=== PATIENT | female | born 1950 | race Caucasian/White ===

== ENCOUNTER 2019-01-23 10:08 | Inpatient (IN) | payer MEDICARE, BC ==
[~2019-01-23 10:08] MED LIST: ACETAMINOPHEN 1,000 MG/100 ML BTL IVPB ONE; ACETAMINOPHEN 500 MG TABLET PO ONE; CELECOXIB 100 MG CAPSULE PO ONE; CLINDAMYCIN PHOS/D5W 900MG 900 MG/50 ML BAG IVPB ONE; FAMOTIDINE 20MG TABLET PO ONE; METOCLOPRAMIDE 10 MG TABLET PO ONE; RINGERS SOLUTION,LACTATED 1,000 ML IV ONE; SCOPOLAMINE 1 PATCH TDSY TD ONE; VANCOMYCIN 1GM/200ML PREMIX 1 GM/200 ML PIGGYBACK IVPB ONE
[2019-01-23] MEDS ORDERED: 0.9 % SODIUM CHLORIDE 1000ML 1,000 ML IV ONE ×2 (10:58→13:20)
[2019-01-23 11:07] LABS: ABO GROUP A; ANTIBODY SCREEN NEGATIVE (NEGATIVE); RH TYPE POSITIVE
[2019-01-23] MEDS ORDERED: AL HYDROX/MAG HYDROX 30ML UD PO PRN (11:42)
[2019-01-23] MEDS ORDERED: ZOLPIDEM TARTRATE 5 MG TABLET PO PRN (11:42)
[2019-01-23] MEDS ORDERED: METOCLOPRAMIDE HCL 10 MG/2 ML VIAL IVP PRN (11:42)
[2019-01-23] MEDS ORDERED: KETOROLAC 30 MG/ML VIAL IVP PRN ×2 (11:42)
[2019-01-23] MEDS ORDERED: HYDROMORPHONE HCL 2 MG/ML VIAL IM PRN ×2 (11:42)
[2019-01-23] MEDS ORDERED: TRAMADOL HCL 50 MG TABLET PO PRN ×2 (11:42)
[2019-01-23] MEDS ORDERED: ACETAMINOPHEN W/ CODEINE 300MG/60MG TABLET PO PRN ×2 (11:42)
[2019-01-23] MEDS ORDERED: MAGNESIUM HYDROXIDE 30 ML UDC PO PRN (11:42)
[2019-01-23] MEDS ORDERED: DIPHENHYDRAMINE HCL 25 MG CAPSULE PO PRN (11:42)
[2019-01-23] MEDS ORDERED: PROMETHAZINE HCL 12.5 MG in 0.9 % SODIUM CHLORIDE 100ML 50 ML IVPB PRN (11:42)
[2019-01-23] MEDS ORDERED: ONDANSETRON HCL IV 4 MG/2 ML VIAL IVP PRN (11:42)
[2019-01-23] MEDS ORDERED: BISACODYL 10 MG SUPP RC PRN (11:42)
[2019-01-23] MEDS ORDERED: NALOXONE 0.4 MG/1 ML VIAL IVP PRN (11:42)
[2019-01-23] MEDS ORDERED: ACETAMINOPHEN W/ CODEINE 300MG/30MG TABLET PO PRN ×2 (11:42)
[2019-01-23] MEDS ORDERED: ACETAMINOPHEN 325 MG TAB PO PRN (11:42)
[2019-01-23] MEDS ORDERED: HYDROCODONE/APAP 5/325MG TABLET PO PRN (11:42)
[2019-01-23] MEDS ORDERED: VANCOMYCIN HCL 3,000 MG in RINGERS SOLUTION,LACTATED 3,000 ML IVPB ONE (12:27)
[2019-01-23] MEDS ORDERED: BUPIVACAINE LIPOSOME 266MG/20ML VIAL SQ ONE (13:01)
[2019-01-23] MEDS ORDERED: BUPIVACAINE 0.5% W/EPI MPF 30 ML VIAL SQ ONE (13:01)
[2019-01-23] MEDS ORDERED: TRANEXAMIC ACID 1,000 MG/10 ML ML IV ONE (14:00)
[2019-01-23] MEDS ORDERED: DEXTROSE 5 % AND 0.9 % NACL 1,000 ML IV PRN (14:30)
[2019-01-23] MEDS: HYDROCODONE/APAP 7.5/325MG TABLET PO PRN ×2 (15:02→18:57)
[2019-01-23] MEDS: DOCUSATE SODIUM 100 MG CAPSULE PO SCH (21:52)
[2019-01-23] MEDS: FERROUS SULFATE 325 MG TAB PO SCH (21:52)
[2019-01-23] MEDS: VANCOMYCIN 1GM/200ML PREMIX 1 GM/200 ML PIGGYBACK IVPB SCH (22:04)
[2019-01-24] MEDS: HYDROCODONE/APAP 7.5/325MG TABLET PO PRN ×3 (03:39→15:27)
[2019-01-24 06:43] LABS: HEMATOCRIT 34.9 % (35.0-47.0); HEMOGLOBIN 11.5 gm/dl (11.6-16.0)
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
[2019-01-24] MEDS: PREGABALIN 25 MG CAPSULE PO SCH (10:42)
[2019-01-24] MEDS: FERROUS SULFATE 325 MG TAB PO SCH ×2 (10:43→21:17)
[2019-01-24] MEDS: ATORVASTATIN 20 MG TABLET PO SCH (10:43)
[2019-01-24] MEDS: PREGABALIN 50 MG CAPSULE PO SCH (10:43)
[2019-01-24] MEDS: DOCUSATE SODIUM 100 MG CAPSULE PO SCH ×2 (10:43→21:17)
[2019-01-24] MEDS: HYDROCHLOROTHIAZIDE 25 MG TABLET PO SCH (10:43)
[2019-01-24] MEDS: METOPROLOL SUCC 50 MG TABLET PO SCH (10:43)
[2019-01-24] MEDS: RIVAROXABAN 10 MG TABLET PO SCH (10:44)
[2019-01-24] MEDS: CELECOXIB 100 MG CAPSULE PO SCH (10:44)
[2019-01-24] MEDS: VANCOMYCIN 1GM/200ML PREMIX 1 GM/200 ML PIGGYBACK IVPB SCH (10:44)
[2019-01-24] MEDS: AMLODIPINE BESYLATE 5MG TAB PO SCH (10:44)
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
--- NOTE | 2019-01-24 12:50 | Operative Note ---
PREOPERATIVE DIAGNOSIS: Right hip end-stage arthrosis. POSTOPERATIVE DIAGNOSIS: Right hip end-stage arthrosis. OPERATION: Right total hip arthroplasty. SURGEON: Augustus Alonso MD ANESTHESIA: Spinal. ANESTHESIA PROVIDER: Sawyer Allen CRNA COMPLICATIONS: None. ESTIMATED BLOOD LOSS: 200 mL OPERATIVE FINDINGS: [id number] hip arthrosis. COMPONENTS PLACED: A 2 g vancomycin cement [employer] Synergy total hip arthroplasty system cemented, a size 12 high-offset femoral stem component, a 32 plus 4 mm cobalt chrome femoral head component, a 52 mm 3-hole Reflection acetabular screw component with 2 screw caps, centrally-threaded screw cap, and a 35-degree highly cross-linked polyethylene liner. INDICATION: This is a 68-year-old female with end-stage hip arthrosis. She is well known to me. She is status post left hip arthroplasty done a few years ago. Scheduled for right. I explained all risks and benefits in detail for the diagnosis and procedure including but not limited to infection, nerve injury, vessel injury, persistent pain, stiffness, numbness, tingling in her hip, periprosthetic fracture, need for resection arthroplasty should the components become infected or loosen, nerve injury, vessel injury, blood clot, need for further procedures, and need for anticoagulation to prevent blood clots and risks associated with these medications. All of her questions were answered. The rehab and healing course were outlined. She agreed to proceed. PROCEDURE: The patient brought to the OR and placed in the left lateral decubitus position. The right hip and lower extremity prepped and draped in sterile fashion. Prepped again with Chloraprep and draped. Intraoperative timeout was performed. Next, a standard posterior approach was marked over the hip. It was infiltrated with 0.5% Marcaine with epinephrine, Exparel, tranexamic acid mixture. Skin and subcutaneous tissue dissected down to gluteal fascia, split longitudinally. The subgluteal plane was bluntly dissected. Self-retainer was brought in and had good exposure. We then released the short external rotators, tagged them with #2 Vicryl. We then incised the capsule, inverted in T fashion, and dislocated the femoral head. Resected it 1.5 cm above the lesser trochanter. Inserted the box osteotome, inserted the reamer. Started reaming in 1 mm increments working up to a size 12. We stopped there, at previous size we used in the other hip, and then we broached a 10, calcar plane, then 11, then a 12, had a good fit. Next, attention turned to the acetabulum. Released the anterior capsule acetabulum and brought in self-retainers. Had a good exposure of the acetabulum. We resected some of the labrum and periphery and capsule. Next, we started reaming in 1 mm increments working 45 degrees inclination and 20 degrees anteversion until we reamed up to a size 51 mm and planned on using a 52 shell. We impacted the trial shell and it fit nicely. It was down flush medially and peripherally. That is the size we used. Next, inserted the real 3-hole acetabular shell after changing our gloves after irrigating copiously. Impacted down until medial with wall. We drilled a posterior central superior quadrant screw hole and inserted the 40 mm screw. We had a good purchase. Next, then placed a trial liner and did a trial reduction with the trial stem. Best combination range of motion, stability was with a high-offset 32 plus 4 mm femoral head component. This allowed for good abductor tension, symmetric leg lengths, and stability with flexion and internal rotation and stability with extension and external rotation with the size we used. Next, we irrigated copiously, removed all trial components, placed 2 screw caps, centrally-threaded screw cap, and impacted down the real acetabular liner with the hamm in the posterosuperior quadrant. Verified it was interlocked after mixing cement. Next, we placed cement restrictor in the femoral canal after irrigating and injected the cement using thrid generation cement technique, removed the suction catheter and impacted down the real femoral stem again in 15 degrees of anteversion until the collar was flush with the medial calcar. Next, once cement hardened, we then cleaned and dried the trunnion, impacted down the real femoral head component, reduced the hip, and found that the range of motion to be the same. Then we irrigated copiously, injected our 0.5% Marcaine with epinephrine, Exparel, tranexamic acid mixture deep now in the short external rotators, deep capsule, and deep abductors working out superficially, checking the sciatic nerve, gluteal and subcutaneous. Next, closed the gluteal fascia securely with running #2 quill suture, irrigated again and closed the skin with 2-0 Vicryl. Provisional dressing applied with Acticoat and sterile dressing, changed to CARLA dressing prior to discharge. CC: Americo VILLAVICENCIO
[2019-01-24] MEDS ORDERED: LIDOCAINE 2% MDV (20MG/ML) 20ML VIAL IV ONE (16:15)
[2019-01-24] MEDS ORDERED: MIDAZOLAM HCL 2MG/2ML VIAL IV ONE (16:15)
[2019-01-24] MEDS ORDERED: EPHEDRINE SULFATE 50 MG/ML ML IV ONE (16:15)
[2019-01-24] MEDS ORDERED: PROPOFOL 10 MG/ML VIAL IV ONE (16:15)
[2019-01-25] MEDS: HYDROCODONE/APAP 5/325MG TABLET PO PRN ×4 (00:57→21:25)
[2019-01-25 06:28] LABS: HEMATOCRIT 36.6 % (35.0-47.0); HEMOGLOBIN 12.2 gm/dl (11.6-16.0)
--- NOTE | 2019-01-25 08:57 | RADIOLOGY REPORT ---
EXAMINATION: Right hip 1 view. CLINICAL HISTORY: Postop total hip arthroplasty. TECHNIQUE: Single AP spine view of the right hip is obtained portably. COMPARISON: None. ENCOUNTER: Initial. FINDINGS: There is normal bone mineralization. There are changes of recent total right hip arthroplasty with the metallic prosthetic components appearing well seated. No complicating fracture or dislocation. Soft tissue swelling and soft tissue emphysema are noted at the surgical site. Surgical clips project at the level of the right inferior pubic ramus. IMPRESSION: Status post recent total right hip arthroplasty without complicating fracture or dislocation. MTDD
[2019-01-25] MEDS: DOCUSATE SODIUM 100 MG CAPSULE PO SCH ×2 (10:19→21:25)
[2019-01-25] MEDS: CELECOXIB 100 MG CAPSULE PO SCH (10:19)
[2019-01-25] MEDS: HYDROCHLOROTHIAZIDE 25 MG TABLET PO SCH (10:20)
[2019-01-25] MEDS: FERROUS SULFATE 325 MG TAB PO SCH ×2 (10:20→21:25)
[2019-01-25] MEDS: ATORVASTATIN 20 MG TABLET PO SCH (10:21)
[2019-01-25] MEDS: PREGABALIN 25 MG CAPSULE PO SCH (10:22)
[2019-01-25] MEDS: PREGABALIN 50 MG CAPSULE PO SCH (10:22)
[2019-01-25] MEDS: AMLODIPINE BESYLATE 5MG TAB PO SCH (10:22)
[2019-01-25] MEDS: METOPROLOL SUCC 50 MG TABLET PO SCH (10:23)
[2019-01-25] MEDS: RIVAROXABAN 10 MG TABLET PO SCH (10:26)
--- NOTE | 2019-01-25 14:05 | Physical Therapy Tx Note ---
Physical Therapy Tx Note - Treatment Note Tolerated: Good Total Time Spent With Patient: 30 Physical Therapy Tx Note: Detail (Patient was in bathroom with nurse upon [employer] arrival. Patient states right hip sore this morning. Patient ambulated 130 feet with wheeled walker SBA x1. Patient declined stair climbing. Patient transferred sit to supine independently. Patient scooted up in bed independently. Patient performed the following exercises x5-10 reps each: ankle pumps, glut squeezes, quad sets, heel slides with strap, hamstring sets, and hip abduction with strap. Patient tolerated treatment well. Patient required verbal cueing to avoid hip internal rotation with heel slides. Patient was left reclined in bed with call light within reach.) Physical Therapy Problem List: Detail (1) Decreased R LE strength 2) Impaired ambulation s/p THR surgery) Physical Therapy Goals: 1) The patient will ambulate with front wheeled walker a distance of 100 feet plus WBAT on the R LE independently. 2) The patient will ambulate on a flight of stairs using proper technique independently. 3) The patient will be independent with all transfers without verbal cues. Prognosis: Good Physical Therapy Plan: Patient to be transferred to subacute rehab tomorrow.
--- NOTE | 2019-01-25 14:57 | Occupational Therapy Tx Note ---
Occupational Therapy Tx Note - Treatment Note Tolerated: Good Total Time Spent With Patient: 20 (1 ADL) Occupational Therapy Treatment Note: Detail (S: Pt supine in bed just post wound dressing change with KALEIGH Giraldo at bedside upon arrival. Pt verbalizes 2/3 hip precautions initially, later verbalizes 3/3. O: Supine to EOB with SBA - verbal instruction to avoid internal hip rotation. LB dress with SBA overall - Pt doffs/dons pants, socks, underwear with fair to good follow through post yesterday's session using fishing guide with verbal instruction for technique and to maintain hip precautions. Functional ambulation within bedroom with FWW and SBA, verbal instructions to avoid hip internation rotation during gait. OT also assessing cognition throughout - Pt demos deficits in memory and problem solving despite Pt reported independence with finance and med mgmt at home - reports lately her credit score has dropped. Pt may benefit from formal cognitive screen to assess home safety. A: Pt will benefit from further rehab to increase safety and independence with ADLs and functional TFs with decreased risk of injury to new joint.) Occupational Therapy Problem List: Detail (1. Decreased knowledge and follow through of R CASSI precautions. 2. Decreased safety and independence with LB dressing. 3. Decreased safety with functional TFs.) Occupational Therapy Goals: 1. Pt will verbalize 3/3 R CASSI precautions and demo good follow through throughout session. 2. Pt will demo LB dressing at MOD I level with good use of modified technique and AE while maintaining R CASSI precautions. 3. Pt will demo functional TFs, including toilet and tub/shower, at MOD I level. Occupational Therapy Plan: Pt would benefit from further rehab to increase functional independence and decrease risk of injury and readmissions, plan is JERRY cárdenasrdonald. Thank you for this referral.
[2019-01-26] MEDS: HYDROCODONE/APAP 5/325MG TABLET PO PRN (02:46)
[2019-01-26] MEDS: AMLODIPINE BESYLATE 5MG TAB PO SCH (09:10)
[2019-01-26] MEDS: ATORVASTATIN 20 MG TABLET PO SCH (09:10)
[2019-01-26] MEDS: CELECOXIB 100 MG CAPSULE PO SCH (09:11)
[2019-01-26] MEDS: METOPROLOL SUCC 50 MG TABLET PO SCH (09:11)
[2019-01-26] MEDS: PREGABALIN 25 MG CAPSULE PO SCH (09:11)
[2019-01-26] MEDS: FERROUS SULFATE 325 MG TAB PO SCH (09:11)
[2019-01-26] MEDS: DOCUSATE SODIUM 100 MG CAPSULE PO SCH (09:11)
[2019-01-26] MEDS: PREGABALIN 50 MG CAPSULE PO SCH (09:11)
[2019-01-26] MEDS: HYDROCHLOROTHIAZIDE 25 MG TABLET PO SCH (09:11)
[2019-01-26] MEDS: RIVAROXABAN 10 MG TABLET PO SCH (09:11)
[2019-01-26] MEDS: HYDROCODONE/APAP 7.5/325MG TABLET PO PRN (09:21)
== END 2019-01-26 11:20 | DRG 470 ==
LOC: MEDSURG 10:08
PROVIDERS: ADMIT Orthopaedic Surgery; ATTEND Orthopaedic Surgery
PROC: 0SR9069 Replacement of Right Hip Joint with Oxidized Zirconium on Polyethylene Synthetic Substitute, Cemented, Open Approach (ICD-10-PCS; principal; 2019-01-23 12:00)
DX: M16.11 Unilateral primary osteoarthritis, right hip (principal); I10 Essential (primary) hypertension; E78.00 Pure hypercholesterolemia, unspecified
CPT/HCPCS: 85014; 85018; 86850; 86900; 86901; 97110; 97530; C1776; J3370; J3490; J7030; J7042; J7120